=== PATIENT | female | born 1975 | race Caucasian/White ===

== ENCOUNTER 2024-05-28 08:56 | Day surgery (SDC) | payer OTHER ==
[~2024-05-28] VITALS: Ht 157.5 cm; Wt 81.6 kg
[2024-05-28] MEDS ORDERED: fentaNYL citrate 0.05 MG/ML VIAL ONE (11:07)
[2024-05-28] MEDS ORDERED: MIDAZOLAM 5 MG/5 ML VIAL ONE (11:26)
[2024-05-28] MEDS: MIDAZOLAM 2 MG/2 ML VIAL IVP ONE (11:48)
[2024-05-28] MEDS: fentaNYL citrate 0.05 MG/ML VIAL IVP ONE (11:49)
[2024-05-28] MEDS: LIDOCAINE 2% 100 MG/5 ML UJET TP ONE (12:05)
== END 2024-05-28 13:28 | disposition home or self-care (01) ==
LOC: MDS 08:56 → MMU 08:57 → MDS 13:28
PROVIDERS: ATTEND Internal Medicine Gastroenterology
DX: Z12.11 Encounter for screening for malignant neoplasm of colon (principal); R13.10 Dysphagia, unspecified; K21.9 Gastro-esophageal reflux disease without esophagitis; I10 Essential (primary) hypertension; E78.00 Pure hypercholesterolemia, unspecified; Z79.899 Other long term (current) drug therapy
CPT/HCPCS: 36415; 43239; 45378; 86677; J2250; J3010